=== PATIENT | male | born 1965 | race Caucasian/White ===

== ENCOUNTER 2023-01-16 23:54 | Emergency (ER) | payer OTHER ==
[~2023-01-16] VITALS: Ht 172.7 cm; Wt 74.8 kg
--- NOTE | 2023-01-17 00:07 | NUR ---
Dr. Santiago at bedside. MSE in progress.
[2023-01-17] MEDS ORDERED: IV D5/ 0.9% NACL 1,000 ML IV ONE (00:15)
[2023-01-17 00:39] LABS: HEMATOCRIT 51.1 % (36.7-47.1); MEAN CORPUSCULAR HEMOGLOBIN 30.3 uug (23.8-33.4); MEAN CORPUSCULAR VOLUME 92.5 fL (73.0-96.2); PLATELET COUNT (AUTO) 195 K/uL (152-348)
[2023-01-17 01:23] LABS: CARBON DIOXIDE 18 mmol/L (21-32); CHLORIDE 95 mmol/L (98-107); CREATININE 0.9 mg/dL (0.6-1.3); GLUCOSE 64 mg/dL (74-106); POTASSIUM 4.1 mmol/L (3.5-5.1); UREA NITROGEN, BLOOD 13 mg/dL (7-18)
[2023-01-17 01:29] LABS: ALANINE AMINOTRANSFERASE 147 U/L (16-63); ALKALINE PHOSPHATASE 168 U/L (50-136); ASPARTATE AMINOTRANSFERASE 281 U/L (15-37); BILIRUBIN,DIRECT 0.4 mg/dL (0.0-0.2); BILIRUBIN,TOTAL 0.9 mg/dL (0.2-1.0); TOTAL PROTEIN, SERUM 8.6 g/dL (6.4-8.2)
[2023-01-17 01:31] LABS: ACETAMINOPHEN < 2.0 ug/mL (10-30)
--- NOTE | 2023-01-17 02:30 | NUR ---
Patiently sleeping, easy to arouse. NAD noted.
[2023-01-17] MEDS ORDERED: IV NORMAL SALINE 1000 ML BAG IV ONE ×2 (03:00)
--- NOTE | 2023-01-17 04:00 | NUR ---
Patient still sleeping. NAD noted. Visble chest rises. Will continue to moitor.
[2023-01-17 05:59] LABS: CREATININE 0.7 mg/dL (0.6-1.3); POTASSIUM 3.4 mmol/L (3.5-5.1)
[2023-01-17] MEDS ORDERED: ARIP2TAB3 PO (06:30)
--- NOTE | 2023-01-17 06:56 | NUR ---
Patrient sleeping. Visble chest rises. NAD noted.
--- NOTE | 2023-01-17 07:07 | NUR ---
Patient given written and verbal discharge instructions. Patient verbalizes understanding of instructions. Patient is ambulatory with steady gait. Refuses offer of [facility] placement. Patient given list of available shelters in surrounding area.
[2023-01-17 07:10] VITALS: BP 112/81
== END 2023-01-17 07:10 | disposition home or self-care (01) ==
LOC: ER 23:59
DX: S00.01XA Abrasion of scalp, initial encounter (principal); F10.129 Alcohol abuse with intoxication, unspecified; E87.20 Acidosis, unspecified; F17.210 Nicotine dependence, cigarettes, uncomplicated; Z59.00 Homelessness unspecified; Z20.822 Contact with and (suspected) exposure to COVID-19; W01.0XXA Fall on same level from slipping, tripping and stumbling without subsequent striking against object, initial encounter; Y93.89 Activity, other specified; Y92.89 Other specified places as the place of occurrence of the external cause; Y99.8 Other external cause status; Y90.0 Blood alcohol level of less than 20 mg/100 ml
CPT/HCPCS: 99284; 80076; 80048 ×2; 82009; 82140; 85025; 87426; 36415; 70450; 72125; 96360; 96361; 83605 ×2; 80299; 80320; 99406; J7042; J7040 ×2; A4663; G0480